=== PATIENT | female | born 1960 | race Caucasian/White ===

== ENCOUNTER 2016-07-04 16:33 | Outpatient (CLI) | payer MEDICAID | END 2016-07-04 16:34 | DX: I10 Essential (primary) hypertension (principal); E78.00 Pure hypercholesterolemia, unspecified ==

== ENCOUNTER 2018-01-15 16:21 | Emergency (ER) | payer MEDICAID, OTHER ==
[2018-01-15 16:27] VITALS: BP 140/96
[2018-01-15] MEDS ORDERED: CYCLOBENZAPRINE 10 MG TABLET PO STA (18:29)
[2018-01-15] MEDS ORDERED: HYDROcod/ACETAM 10 MG/325 MG TABLET PO STA (18:29)
--- NOTE | 2018-01-15 18:31 | ED Physician Documentation ---
PD HPI BACK PAIN - Stated complaint Stated Complaint: MADHAV PX - Additional information Additional information: 57-year-old female presents the emergency department with complaints of chronic back pain. The patient has a closing spondylitis and currently is in between physicians, the patient is also scheduled to see spine surgery in [place]. The patient has no acute complaints. The patient is requesting help with her chronic pain. The patient denies saddle anesthesia, fever, hematuria, motor weakness, sensory changes, no IV drug use or urinary retention or overflow incontinence. Symptoms are described as moderate. No new symptoms. No new triggering factors. Review of Systems Constitutional: denies: Fever Nose: denies: Congestion Throat: denies: Sore throat Cardiac: denies: Chest pain / pressure Respiratory: denies: Dyspnea GI: denies: Abdominal Pain : denies: Unable to Void, Incontinent Musculoskeletal: reports: Neck pain, Back pain Neurologic: denies: Focal weakness, Numbness PD PAST MEDICAL HISTORY - Present Medications Home Medications: Ambulatory Orders Medication Instructions Recorded Confirmed Cyclobenzaprine [Flexeril] 10 mg PO TID PRN #20 tablet 01/15/18 HYDROcod/ACETAM 5/325 [[place] 5/325] 1 each PO Q6H PRN #10 tablet 01/15/18 - Allergies Allergies/Adverse Reactions: Allergies Allergy/AdvReac Type Severity Reaction Status Date / Time codeine Allergy Emesis Verified 01/15/18 16:27 PD ED PE NORMAL - General General: Alert and oriented X 3 - HEENT HEENT: Atraumatic, PERRL, EOMI, Ears normal - Back Back: No: No spinal TTP (The patient has tenderness in her lumbar paraspinal muscles, no crepitus, no signs of infectious changes.) - Extremities Extremities: No deformity, Normal ROM s pain - Neuro Neuro: Alert and oriented X 3, No motor deficit, No sensory deficit Results - Vitals Vitals: Vital Signs - 24 hr 01/15/18 16:24 Temperature 36.8 C Heart Rate 113 H Respiratory 20 Rate Blood Pressure 140/96 H O2 Saturation 97 Oxygen O2 Source Room air PD MEDICAL DECISION MAKING - ED course ED course: The patient's symptoms are chronic, the patient does not have any acute findings on examination or history that suggest acute cauda equina or epidural abscess and presently the patient Appears appropriate for discharge with a short course of pain management. I discussed the patient that the emergency department will not refill pain medications for her in the future. I advised that she needs one prescriber to manage her ongoing chronic pain. The patient understands and agrees. I discussed warning signs and recommended returning to the emergency department immediately for worsening or any concerns. Departure - Departure Disposition: 01 Home, Self Care Clinical Impression: Chronic back pain Qualifiers: Back pain location: low back pain Back pain laterality: unspecified Sciatica presence: without sciatica Qualified Code(s): M54.5 - Low back pain Instructions: ED Chronic Pain Management Follow-Up: Berny Hill MD [Primary Care Provider] - Within 3 Days Prescriptions: Cyclobenzaprine [Flexeril] 10 mg PO TID PRN #20 tablet PRN Reason: Spasms HYDROcod/ACETAM 5/325 [[place] 5/325] 1 each PO Q6H PRN #10 tablet PRN Reason: Pain Comments: The emergency department will not refill your pain medications on an ongoing basis. You will need to have further narcotic pain medications prescribed from 1 physician or advanced medical practice assistant. Return to the emergency department for any worsening or any concerns Discharge Date/Time: 01/15/18 18:50
== END 2018-01-15 18:50 | disposition home or self-care (01) ==
LOC: ED 16:21
DX: M54.5 Low back pain (principal)
CPT/HCPCS: 99281; 99283; A9270

== ENCOUNTER 2023-10-26 16:00 | Outpatient (CLI) | payer MEDICAID | END 2023-10-26 23:59 | disposition EMS.NT | LOC: EMS 16:00 | DX: Z03.89 Encounter for observation for other suspected diseases and conditions ruled out (principal) ==